=== PATIENT | male | born 2000 | race Caucasian/White ===

== ENCOUNTER 2024-11-22 08:05 | Outpatient (AMB) | payer OTHER, SELFPAY ==
--- OUTSIDE RECORDS SUMMARY | 2024-11-22 08:12 | XMS_ITS | Continuity of Care Document ---
Author Organization [facility] Address [address], [address] [place] [address]- Care Team Providers Care Can Reconditioner Name Role Phone Oj Valles MD Primary Care Physician [phone] Encounter 11/12/24 - 11/19/24 [facility] [place] [address], [address] [place] [address]- Attending Physician: Deondre Ramachandran Admitting Physician: Deondre Ramachandran Referring Physician: Deondre Ramachandran Encounter Type: OutPatient One Time Allergies, Adverse Reactions, Alerts No Known Allergies Immunizations Given and Recorded Vaccine Date Status Refusal Reason influenza virus vaccine, inactivated 07/26/21 Keon rded influenza virus vaccine, inactivated 06/30/20 Keon rded influenza virus vaccine, inactivated 06/24/19 Keon rded influenza virus vaccine, inactivated 08/21/18 Keon rded influenza virus vaccine, inactivated 08/31/17 Keon rded influenza virus vaccine, inactivated 06/23/16 Keon rded influenza virus vaccine, inactivated 08/26/15 Keon rded influenza virus vaccine, inactivated 08/15/13 Keon rded influenza virus vaccine, inactivated 08/06/12 Keon rded influenza virus vaccine, inactivated 08/19/11 Keon rded influenza virus vaccine, inactivated 08/12/10 Keon rded meningococcal group B vaccine 04/29/21 Recorded meningococcal group B vaccine 06/30/20 Recorded Hepatitis A Pediatric Vaccine 04/29/21 Recorded Hepatitis A Pediatric Vaccine 06/30/20 Recorded SARS-CoV-2 (COVID-19) mRNA-1273 vaccine 03/09/21 R ecorded SARS-CoV-2 (COVID-19) mRNA-1273 vaccine 02/09/21 R ecorded Meningococcal Conjugate Vaccine 06/24/19 Recorded Meningococcal Conjugate Vaccine 02/18/14 Recorded Human Papillomavirus Vaccine 10/02/14 Recorded Human Papillomavirus Vaccine 05/13/14 Recorded Human Papillomavirus Vaccine 02/18/14 Recorded influenza virus vaccine, live 08/05/14 Recorded tetanus/diphtheria/pertussis, acel(Tdap) 02/18/14 Recorded influ virus vac, H1N1, inactive(oldterm) 12/14/09 Recorded Varicella Virus Vaccine 11/27/07 Recorded Varicella Virus Vaccine 10/02/03 Recorded Poliovirus Vaccine, Inactivated 11/27/07 Recorded Poliovirus Vaccine, Inactivated 04/05/04 Recorded Poliovirus Vaccine, Inactivated 01/29/03 Recorded Poliovirus Vaccine, Inactivated 02 Recorded Measles/Mumps/Rubella Virus Vaccine 08/30/07 Recor ded Measles/Mumps/Rubella Virus Vaccine 12/29/03 Recor ded pneumococcal 7-valent vaccine 10/02/03 Recorded pneumococcal 7-valent vaccine 04/08/03 Recorded pneumococcal 7-valent vaccine 01/29/03 Recorded pneumococcal 7-valent vaccine 02 Recorded Medications EpiPen 2-Arben 0.3 mg injectable kit = 0.3 mg, Intramuscular, Once, may repeat if necessary, # 1 each, 0 Refills, Soft Stop, 10/17/21 9:25:00 AM EST, [facility], Partial fill upon patient request if the prescription is for aschedule II opioid drug., 175, cm, 10/17/21 2:04:00 EST, Height, 81.7, kg, 10/17/21 2:04:00 EST, Dry Weight Start Date: 10/17/21 Status: Ordered Quantity: 1.0 Unit: each Repeat number: 1 Results Radiology Reports * Exam Date Time Procedure Performing Provider Status 11/12/24 1:58 PM Knee 3 Views Left Askew , Erasmo; Auth (Verified) Notes: (Knee 3 Views Left) Reason For Exam: Pain;Pain RESULT: Knee 3 Views Left Knee 3 Views Left Reason: Pain; Order Comment: COMPARISON: None. FINDINGS: There is no evidence of acute or healing fracture, dislocation or bone lesion. No arthritic changes. No osteochondral defects or intra-articular loose bodies. Moderate knee joint effusion. IMPRESSION: No acute osseous abnormality. WSN: [id number] Ordering Physician: Deondre Khan Dictated By: Cindy Awan MD Dictated Date/Time: 11/12/24 2:07 pm Reviewed By: Cindy Awan MD Signed By: Cindy Awan MD Signed Date/Time: 11/12/24 2:07 pm Transcribed By: MEGHAN Transcribed Date/Time: 11/12/24 2:06 pm Patient Care team information Care Team Personnel Name: Oj Valles MD Position: S Physician - Pediatrics Member Role: PCP Address: [address] [place] [address] Telecom: Care Team Related Persons Name: LAURA ALTAMIRANO Insurance Providers Guarantor name: MYLA COOK Health Plan Information #: 1 Payer: [facility] Member Number: [id number] Policy Number: NA Group Number: NA Health Plan Information #: 2 Payer: [facility] Member Number: [id number] Policy Number: NA Group Number: NA
--- OUTSIDE RECORDS SUMMARY | 2024-11-22 08:12 | XMS_ITS | Data Portability ---
Author Organization [place] - [facility], [facility] Address [address] [place] [id number] Assessment Encounter Date Assessment Date Assessment LastModified by Organization Details LastModified Time 06/30/2020 06/30/2020 Healthy 19 year old. Nl growth and dev jyunis Not available 06/30/2020 15:43:13 07/26/2021 07/26/2021 Healthy 20 year old. Nl growth and dev jyunis Not available 07/26/2021 15:36:45 05/19/2022 05/19/2022 Healthy 21 year old. Nl growth and dev jyunis Not available 05/19/2022 16:56:57 06/08/2023 06/08/2023 Healthy 22 year ild. Nl growth and dev jyunis Not available 06/08/2023 15:56:06 Plan of Treatment Reminders Order Date Submit Date Provider Last Modified By Organization Details Last Modified Time Details Appointments None recorde d. Lab lipid panel, blood 021 07/26/20 [facility], [address] [place] [address], [phone], 15:29:42 CT + NG DNA, PCR, urine 021 07/26/20 21 [facility], [address] [place] [address], [phone], 15:59:50 CT + NG DNA, PCR, urine 022 05/19/20 22 [facility], [address] [place] [address], [phone], 15:54:15 CT + NG DNA, PCR, urine 023 06/08/20 23 [facility], [address] [place] [address], [place], [phone], 16:01:53 Referral None recorde d. Procedures None recorde d. Surgeries None recorde d. Imaging None recorde d. Medication Orders None recorde d. Patient TargetsNo targets recorded. Patient Instructions Encounter Date Encounter Id Patient Instructions Last Modified By Organization Details Last Modified Time 06/30/2020 [id number] patient health questionnaire modified for adolescents* ZAHRA Not available 06/30/2020 15:10:41 immunization: what you need to know jyunis Not available 06/30/2020 14:21:35 07/26/2021 [id number] patient health questionnaire depression assessment* jyunis Not available 07/26/2021 15:20:31 immunization: what you need to know jyunis Not available 07/26/2021 15:20:30 05/19/2022 [id number] program - 5 fruits & veggies jyunis Not available 05/19/2022 15:46:18 5210 program - 1 hour of exercise jyunis Not available 05/19/2022 15:46:19 patient health questionnaire depression assessment* ZAHRA Not available 05/19/2022 16:03:04 We have discusse d that it is now time for the patient to work on selecting a new adult medicine provider. mpotterton Not available 05/18/2022 11:21:46 06/08/2023 [id number] immunization: what you need to know jyunis Not available 06/08/2023 15:59:31 5210 program - 5 fruits & veggies jyunis Not available 06/08/2023 15:59:31 5210 program - 1 hour of exercise jyunis Not available 06/08/2023 15:59:31 We have discusse d that it is now time for the patient to work on selecting a new adult medicine provider. ataliceo Not available 06/07/2023 10:04:01 Reason for Referral None Reported. Results Created Date Observation Date Name Description Value Unit Range Abnormal Flag Note LastModifiedBy Organization Detail LastModifiedTime 06/30/20 20 06/30/2020 [facility] ionna sandra modif ied for adole scent s* PHQ-9 negati ve Not Available [facility] [address] [facility], [place], [phone], 06/30/2020 08:45:23 07/26/20 21 07/27/2021 URINE CHLAM YDIA GC AMP PROBE urine chlamydia amp probe (neg) NEGAT ROME No Chlam ydia Trach omati s RNA detec rose mary in this patie nt's sampl e (REFE RENCE RANGE /NORM AL VALUE : NOT DETEC ROSE MARY) Note: This test uses trans cript ion- media rose mary ampli ficat ion metho d to detec t rRNA from C. Trach omati s Not Available [facility] [address] [place], [address], 07/27/2021 10:18:02 07/26/20 21 07/27/2021 URINE CHLAM YDIA GC AMP PROBE urine GC amp probe (neg) NEGAT ROME No Neiss eria Gonor rhoea e RNA detec rose mary in this patie nt's sampl e (REFE RENCE RANGE /NORM AL VALUE : NOT DETEC ROSE MARY) NOTE: This test uses trans cript ion-m ediat ed ampli ficat ion metho d to detec t rRNA from N.Jeremie orrho eae. A negat rome resul t does not precl ude infec tion. In the case of a negat rome urine resul t, testi ng of an endoc ervic al(fe male) or ureth ral (male ) speci men is recom ty d if there is high clini heather suspi cion of infec tion. Due to very high sensi tivit y of Nucle ic Acid Ampli ficat ion Test, false posit rome resul ts may occur . There fore, speci men handl ing is extre sally impor tant. In patie nts in whom the disea se is unlik toño, addit ional sampl e for testi ng shoul d be consi dered after an initi al posit rome resul t. The perfo rmanc e richy cteri stics of this test have not been evalu ated in child shakira. The Aptim a Combo 2 assay is not inten ded for the evalu ation of suspe cted sexua l abuse or for other medic o-leg al indic ation s. The order ing provi cris shoul d asses s if the patie nt had conse nsual sex witho ut risk of sexua l abuse . [facility] if neede d. Conta ct phone numbe r [phone]. Thera peuti c failu re or succe ss canno t be deter mined with the Aptim a Combo 2 assay since nucle ic acid may persi st follo wing appro priat e antim icrob ial thera py. The Cente rs for Disea se Contr ol and Preve ntion ([facility]) recom mends confi rmato ry retes ting using cultu re or a diffe rent nucle ic acid ampli ficat ion test when posit rome resul ts occur , if indic ated. Not Available [facility] [address] [place], [address], 07/27/2021 10:18:02 07/26/20 21 07/26/2021 patie nt healt h quest ionna sandra depre ssion asses sment * PHQ-9 negati ve Not Available [facility] [address] [place] [address], [phone], 07/26/2021 08:12:28 05/19/20 22 05/20/2022 URINE CHLAM YDIA GC AMP PROBE urine chlamydia amp probe (neg) NEGAT ROME No Chlam ydia Trach omati s RNA detec rose mary in this patie nt's sampl e (REFE RENCE RANGE /NORM AL VALUE : NOT DETEC ROSE MARY) Note: This test uses trans cript ion- media rose mary ampli ficat ion metho d to detec t rRNA from C. Trach omati s Not Available [facility] [address] [place], [address], 05/20/2022 12:04:13 05/19/20 22 05/20/2022 URINE CHLAM YDIA GC AMP PROBE urine GC amp probe (neg) NEGAT ROME No Neiss eria Gonor rhoea e RNA detec rose mary in this patie nt's sampl e (REFE RENCE RANGE /NORM AL VALUE : NOT DETEC ROSE MARY) NOTE: This test uses trans cript ion-m ediat ed ampli ficat ion metho d to detec t rRNA from N.Jeremie orrho eae. A negat rome resul t does not precl ude infec tion. In the case of a negat rome urine resul t, testi ng of an endoc ervic al(fe male) or ureth ral (male ) speci men is recom ty d if there is high clini heather suspi cion of infec tion. Due to very high sensi tivit y of Nucle ic Acid Ampli ficat ion Test, false posit rome resul ts may occur . There fore, speci men handl ing is extre sally impor tant. In patie nts in whom the disea se is unlik toño, addit ional sampl e for testi ng shoul d be consi dered after an initi al posit rome resul t. The perfo rmanc e richy cteri stics of this test have not been evalu ated in child [place]. The Aptim a Combo 2 assay is not inten ded for the evalu ation of suspe cted sexua l abuse or for other medic o-leg al indic ation s. The order ing provi cris shoul d asses s if the patie nt had conse nsual sex witho ut risk of sexua l abuse . [facility] if neede d. Conta ct phone numbe r . Thera peuti c failu re or succe ss canno t be deter mined with the Aptim a Combo 2 assay since nucle ic acid may persi st follo wing appro priat e antim icrob ial thera py. The Cente rs for Disea se Contr ol and Preve ntion ([facility]) recom mends confi rmato ry retes ting using cultu re or a diffe rent nucle ic acid ampli ficat ion test when posit rome resul ts occur , if indic ated. Not Available [facility] [address], [place], [address], 05/20/2022 12:04:13 05/19/20 22 05/19/2022 patie nt healt h quest ionna sandra depre ssion asses sment * PHQ-9 negati ve Not Available [facility] [address] [facility], [place], [address], 05/18/2022 11:21:53 06/08/20 23 06/09/2023 CHLAM YDIA/ NEISS ERIA RNA, TMA, URINE urine chlamydia amp probe (neg) NEGAT ROME No Chlam ydia Trach omati s RNA detec rose mary in this patie nt's sampl e (REFE RENCE RANGE /NORM AL VALUE : NOT DETEC ROSE MARY) Note: This test uses trans cript ion- media rose mary ampli ficat ion metho d to detec t rRNA from C. Trach omati s Not Available [facility] [address], [place], [address], 06/09/2023 11:22:36 06/08/20 23 06/09/2023 CHLAM YDIA/ NEISS ERIA RNA, TMA, URINE urine GC amp probe (neg) NEGAT ROME No Neiss eria Gonor rhoea e RNA detec rose mary in this patie nt's sampl e (REFE RENCE RANGE /NORM AL VALUE : NOT DETEC ROSE MARY) NOTE: This test uses trans cript ion-m ediat ed ampli ficat ion metho d to detec t rRNA from N.Jeremie orrho eae. A negat rome resul t does not precl ude infec tion. In the case of a negat rome urine resul t, testi ng of an endoc ervic al(fe male) or ureth ral (male ) speci men is recom ty d if there is high clini heather suspi cion of infec tion. Due to very high sensi tivit y of Nucle ic Acid Ampli ficat ion Test, false posit rome resul ts may occur . There fore, speci men handl ing is extre sally impor tant. In patie nts in whom the disea se is unlik toño, addit ional sampl e for testi ng shoul d be consi dered after an initi al posit rome resul t. The perfo rmanc e richy cteri stics of this test have not been evalu ated in child [place]. The Aptim a Combo 2 assay is not inten ded for the evalu ation of suspe cted sexua l abuse or for other medic o-leg al indic ation s. The order ing provi cris shoul d asses s if the patie nt had conse nsual sex witho ut risk of sexua l abuse . [facility] if neede d. Conta ct phone numbe r . Thera peuti c failu re or succe ss canno t be deter mined with the Aptim a Combo 2 assay since nucle ic acid may persi st follo wing appro priat e antim icrob ial thera py. The Cente rs for Disea se Contr ol and Preve ntion ([facility]) recom mends confi rmato ry retes ting using cultu re or a diffe rent nucle ic acid ampli ficat ion test when posit rome resul ts occur , if indic ated. Not Available [facility] [address] [place], [address], 06/09/2023 11:22:36 Result Notes None recorded. Problems Name Problem SNOMED Code Status Onset Date Resolution Date Notes Provider Name and Address Organization Details Recorded Time Unexplaine d weight loss 495608551 Active Taco Lu MD [address] [place] [address], , [facility] 4 18:01:21 Otitis 50426831 Active Taco Lu MD [address] [place] [address], , [facility] 5 12:41:45 Impacted cerumen 73158803 Completed 03/17/2016 Taco Lu MD [address] [place] [address], [place], [phone] , [facility] 6 10:56:28 Acute sinusitis 88963309 Completed 03/15/2013 Not Available [facility] 3 03:01:56 Acute upper respirator y infection 16158711 Completed 200602/06/2012 Not Available [facility] 3 03:01:56 Wrist joint pain 229544061 Completed 03/15/2013 Not Available [facility] 3 03:01:56 Pneumonia 458129392 Completed 200602/06/2012 Not Available [facility] 3 03:01:56 Verruca vulgaris 50091729 Completed 200702/06/2012 Not Available [facility] 3 03:01:56 Croup 78540854 Completed 03/15/2013 Not Available [facility] 3 03:01:56 Non-suppur ative otitis media with eustachian tube disorder 754150699 Completed 02/06/2012 Not Available [facility] 3 03:01:56 Diarrhea 85757432 Completed 03/15/2013 Not Available [facility] 3 03:01:56 Molluscum contagiosu m infection 56524545 Completed 200702/06/2012 Not Available [facility] 3 03:01:56 Otitis externa 7258513 Completed 200802/06/2012 Not Available [facility] 3 03:01:56 Allergic rhinitis 02418456 Completed 02/06/2012 Not Available [facility] 3 03:01:56 Acute pharyngiti s 948300793 Completed 03/15/2013 Not Available [facility] 3 03:01:56 Acute pharyngiti s 376416795 Completed 200602/06/2012 Not Available [facility] 3 03:01:56 Problem Notes None recorded. Procedures Surgical History Date Name Laterality Status Provider Name and Address Organization Details Recorded Time 5 Wax Removal with Curette Unilateral With or Without Irrigation completed Taco Lu MD [address], [place], , [facility] 09/18/2015 12:03:06 1 Wart removal completed Taco Lu MD [address], [place], , [facility] 12/14/2010 18:28:08 0 Wart removal completed Raymond [place]kathy [facility] 03/08/2010 15:15:55 Imaging Results None recorded. Procedure Notes None recorded. Medical Equipment None Reported. Allergies No known drug allergies Medications Name Sig Start Date Stop Date Status Note LastModified by Organization Details LastModified Time amoxicill in 500 mg capsule Take 2 capsules twice a day by oral route for 10 days. 03/17 completed Not Available Not Available Not Available doxycycli ne hyclate 100 mg capsule 06/30 completed Not Available Not Available Not Available fluoride 1 mg (2.2 mg sodium fluoride) chewable tablet 1 po qd 2009 active Not Available Not Available Not Avai lable tretinoin 0.01 % topical gel MATTHEW SPARINGL Y EXT AA QD 10/20 completed Not Available Not Available Not Available clindamyc in HCl 300 mg capsule 07/26 completed Not Available Not Available Not Available Cortispor in 3.5 mg/mL-10, 000 unit/mL-1 % ear drops,kayla pension Instill 4 drops into affected ear(s) by otic route 3-4 times per day for 5 -7 days 2009 active Not Available Not Available Not Avai lable Amoxil 400 mg/5 mL oral suspensio n Take 5 mL 3 times a day by oral route for 10 days. 03/09 completed Not Available Not Available Not Available ibuprofen 800 mg tablet 06/30 completed Not Available Not Available Not Available minocycli ne 100 mg capsule 06/30 completed Not Available Not Available Not Available Zithromax Z-Arben 250 mg tablet Take 2 tablets (500 mg) by oral route once daily for 1 day then 1 tablet (250 mg) by oral route once daily for 4 days 2009 active Not Available Not Available Not Avai lable adapalene 0.1 % topical cream 04/06 completed [facility] for [facility] Adapalen e Not Available Not Available Not Available amoxicill in 875 mg tablet Take 1 tablet twice a day by oral route for 10 days. 10/18 completed Not Available Not Available Not Available clindamyc in 1 % topical gel MATTHEW THIN LAYER EXT AA BID 06/24 completed Not Available Not Available Not Available oseltamiv ir 75 mg capsule Take 1 capsule every day by oral route for 7 days. 06/30 completed Not Available Not Available Not Available epinephri ne 0.3 mg/0.3 mL injection , auto-inje ctor use as dir active Not Available Not Available No t Available ibuprofen 600 mg tablet TK 1 T PO QID 03/17 completed Not Available Not Available Not Available methylpre dnisolone 4 mg tablets in a dose pack 06/30 completed Not Available Not Available Not Available Orapred 15 mg/5 mL (3 mg/mL) oral solution Take 10 mL 4 times a day by oral route for 5 days. 09/04 completed Not Available Not Available Not Available Ciprodex 0.3 %-0.1 % ear drops,kayla pension Instill 4 drops into affected ear(s) by otic route 2 times per day for 7 days 2010 active Not Available Not Available Not Avai lable chlorhexi dine gluconate 0.12 % mouthwash 06/30 completed Not Available Not Available Not Available multivita min QD active Not Available Not Available Not Available clindamyc in 1.2 % (1 % base)-agustín zoyl peroxide 5 % topical gel 07/26 completed Not Available Not Available Not Available adapalene 0.3 % topical gel 07/26 completed Not Available Not Available Not Available Duac CS 1 %-5 % topical kit apply sparingl y q d 06/30 completed Not Available Not Available Not Available Myorisan 40 mg capsule 07/26 completed Not Available Not Available Not Available BP 5 % topical gel APPLY TOPICALL Y BID 06/30 completed Not Available Not Available Not Available Myorisan 30 mg capsule 07/26 completed Not Available Not Available Not Available Afluria Quad 5432-3832 (PF) 60 mcg (15 mcg x 4)/0.5 mL IM syringe ADM 0.5ML IM UTD 06/24 completed Not Available Not Available Not Available Vitals Date Recorded Body height Body mass index (BMI) Percentile per age and sex Body mass index (BMI) Body weight Systolic blood pressure Diastolic blood pressure Provider Name and Address Organization Details Last Updated DateTime 0 179.71 cm 86 % 25.7 kg/m2 98316.4 g 112 mm[Hg] 62 mm[Hg] Nel Garland R.N. [facility] 0 14:09:05 Date Recorded Body height Body mass index (BMI) Body mass index (BMI) Percentile per age and sex Body weight Systolic blood pressure Diastolic blood pressure Provider Name and Address Organization Details Last Updated DateTime 1 179.71 cm 26.7 kg/m2 87 % 25073.8 3 g 110 mm[Hg] 70 mm[Hg] Jihan burt M.A. [facility] 1 15:14:11 Date Recorded Body height Body mass index (BMI) Body mass index (BMI) Percentile per age and sex Body weight Systolic blood pressure Diastolic blood pressure Provider Name and Address Organization Details Last Updated DateTime 2 179.71 cm 25.1 kg/m2 74 % 89780.3 2 g 112 mm[Hg] 68 mm[Hg] Carolann Whiting MA [facility] 2 15:37:01 Date Recorded Body height Body mass index (BMI) Body mass index (BMI) Percentile per age and sex Body weight Systolic blood pressure Diastolic blood pressure Provider Name and Address Organization Details Last Updated DateTime 3 182.24 cm 27.3 kg/m2 84 % 37951.7 6 g 114 mm[Hg] 78 mm[Hg] Kathy Mcgovern RN [facility] 3 15:51:59 Social History Question Answer Notes LastModified by Organizat ion Details LastModified Time Tobacco Smoking Status Never Smoker Nellie still [facility] 08/30/2012 16:59:55 Have There Been Any Changes To Your Family Or Social Situation? No Information not available 05/24/2017 Hard Of Hearing Or Deaf In One Or Both Ears? No Information not available 04/21/2016 Legally Blind In One Or Both Eyes? No Information not available 04/21/2016 Parent's Marital Status Information not available 03/23/2015 Home Situation Mother Informatio n not available 03/23/2015 Siblings Broderick (Arlene) 01/12/1993 [email or web address] Information not available 08/20/2011 Passive Smoke Exposure No [email or web address] Information not available 08/20/2011 Year In School [employer] cszczepmelina Information not available 07/26/2021 Parent's Name Rachael Malagon [email or web address] Information not available 08/20/2011 Parent's Name Blas Lopez ---- unexpectedly In 02/27 [email or web address] Information not available 08/20/2011 DSS/DCF Custody No Informati on not available 04/21/2016 What Was The Date Of Your Most Recent Tobacco Screening? 06/06/2018 Information not available 05/09/2019 Are You Passively Exposed To Smoke? No Information not available 03/23/2015 How Much Tobacco Do You Smoke? No Information not available 04/19/2016 Do You Use Any Illicit Or Recreational Drugs? No Information not available 05/24/2017 Have You Recently Traveled Abroad? No Information not available 06/30/2020 Sex: Male Functional Status None recorded. Mental Status None recorded. Family History Relationship Description Onset Age of this Age Resolved Age Notes LastModified by Organization Details LastModified Time Mother Allergy aspiri n klisien Not available 09/18/2015 11:48:20 Maternal Grandfather Malignant neoplastic disease lung (previ ously record ed as Cancer ) klisien Not available 09/18/2015 11:48:20 Maternal Grandfather Obese klisien Not available 2014 11:48:20 Maternal Grandfather History of hypertension klisien Not available 02/2016 13:32:59 Father Alcoholism klisien Not availabl e 09/18/2015 11:48:20 Father Disorder of thyroid gland hypert hyroid ism klisien Not available 09/18/2015 11:48:20 Father Heart disease 48 deceas ed klisien Not available 09/18/2015 11:48:20 Father History of hypertension klisien Not available 02/2016 13:32:59 Paternal Grandfather Alcoholism klisien Not available 01/2015 11:48:20 Paternal Grandfather Alzheimer's disease klisien Not available 2014 11:48:20 Maternal Grandmother History of hypertension klisien Not available 02/2016 13:32:59 Notes:Updated 06/07 Medical History Condition Response CARDIAC PROBLEMS N ALLERGIC AND IMMUNOLOGIC PROBLEMS N DEVELOPMENTAL/ BEHAVIORAL PROBLEMS N MUSCLE/ JOINT/ BONE PROBLEMS N DERMATOLOGIC PROBLEMS/ECZEMA N HOSPITALIZATIONS N ENT PROBLEMS/OTITIS MEDIA/ CHRONIC N RENAL PROBLEMS N HEMATOLOGIC /ONCOLOGIC PROBLEMS N ACCIDENTS INJURIES N NEUROLOGIC/ SEIZURES OR CONVULSIONS N ADHD N ENDOCRINE PROBLEMS/DIABETES N HEADACHES/MIGRAINES/DIZZINESS N GI PROBLEMS/CONSTIPATION N CONGENITAL AND GENETIC PROBLEMS N ORTHOPEDIC PROBLEMS N CHICKEN POX / VARICELLA HISTORY or POSIT ROME TITER N PUMONARY PROBLEMS/ ASTHMA N PSYCH PROBLEMS N Immunizations Vaccine Type Date Status Note Provider Nam e and Address Organization Details Recorded Time DTaP, unspecified formulation 8 completed Not Available [facility] 08/20/2011 03:16:44 IPV 8 completed Not Available [facility] 08/20/2011 03:16:44 varicella 8 completed Not Available [facility] 08/20/2011 03:16:44 Influenza, split virus, trivalent, PF 1 completed Not Available [facility] 11/02/2019 02:38:39 Influenza, split virus, trivalent, preservative 2 completed Not Available [facility] 11/02/2019 02:35:24 influenza, unspecified formulation 8 completed Not Available [facility] 08/20/2011 03:16:44 Influenza, split virus, quadrivalent, PF 3 completed Not Available [facility] 11/02/2019 02:35:37 HPV, quadrivalent 4 completed Not Available [facility] 11/02/2019 02:34:12 Tdap 4 completed Not Available [facility] 11/02/2019 02:33:46 meningococcal MCV4P 4 completed Not Available [facility] 11/02/2019 02:33:34 HPV, quadrivalent 4 completed Not Available [facility] 11/02/2019 02:34:13 Influenza, live, quadrivalent, intranasal 4 completed Not Available [facility] 11/02/2019 02:35:50 HPV, quadrivalent 4 completed Not Available [facility] 11/02/2019 02:34:15 Influenza, split virus, quadrivalent, PF 5 completed Not Available [facility] 11/02/2019 02:36:24 Influenza, split virus, quadrivalent, PF 6 completed Not Available [facility] 11/02/2019 02:36:55 Novel [id number] 0 completed Not Available [facility] 11/02/2019 02:34:47 COVID-19, mRNA, LNP-S, PF, 100 mcg/0.5mL dose or 50 mcg/0.25mL dose 1 completed Heriberto Casanova, [facility] 04/29/2021 15:18:14 COVID-19, mRNA, LNP-S, PF, 100 mcg/0.5mL dose or 50 mcg/0.25mL dose 1 completed Heriberto Casanova, [facility] 04/29/2021 15:18:27 influenza, unspecified formulation 9 completed Not Available [facility] 08/20/2011 03:17:07 meningococcal MCV4P 9 completed Not Available [facility] 11/02/2019 02:39:32 Influenza, split virus, quadrivalent, PF 9 completed Not Available [facility] 11/02/2019 02:39:31 Hep A, ped/adol, 2 dose 0 completed Taco Lu MD [address] [place] [address], [phone], [facility] 06/30/2020 15:42:52 Influenza, split virus, quadrivalent, PF 0 completed Taco Lu MD [address], [place], , [facility] 06/30/2020 15:42:52 meningococcal B, OMV 0 completed Taco Lu MD [address], [place], , [facility] 06/30/2020 15:42:52 Hep A, ped/adol, 2 dose 1 [facility] [facility] 15:29:58 meningococcal B, OMV 1 completed [facility] 04/29/2021 15:29:58 Influenza, split virus, quadrivalent, PF 1 completed Jihan Yi M.A. [facility] 07/26/2021 15:29:18 influenza, unspecified formulation 7 completed Not Available [facility] 08/20/2011 03:16:44 Novel [id number], all formulations 9 completed Not Available [facility] 11/16/2019 02:10:49 DTaP, unspecified formulation 4 completed Not Available [facility] 08/20/2011 03:19:09 DTaP, unspecified formulation 3 completed Not Available [facility] 08/20/2011 03:17:38 DTaP, unspecified formulation 3 completed Not Available [facility] 08/20/2011 03:17:38 DTaP, unspecified formulation 3 completed Not Available [facility] 08/20/2011 03:17:38 IPV 4 completed Not Available [facility] 08/20/2011 03:17:38 IPV 3 completed Not Available [facility] 08/20/2011 03:17:38 IPV 3 completed Not Available [facility] 08/20/2011 03:17:38 Hib, unspecified formulation 4 completed Not Available [facility] 08/20/2011 03:17:38 MMR 4 completed Not Available [facility] 08/20/2011 03:17:38 MMR 7 completed Not Available [facility] 08/20/2011 03:17:38 Hib, unspecified formulation 3 completed Not Available [facility] 08/20/2011 03:19:09 Hib, unspecified formulation 3 completed Not Available [facility] 08/20/2011 03:17:38 Hib, unspecified formulation 3 completed Not Available [facility] 08/20/2011 03:17:38 Hep B, unspecified formulation 2 completed Not Available [facility] 08/20/2011 03:17:38 Hep B, unspecified formulation 3 completed Not Available [facility] 08/20/2011 03:17:38 Hep B, unspecified formulation 3 completed Not Available [facility] 08/20/2011 03:17:38 pneumococcal conjugate PCV 7 3 completed Not Available [facility] 08/20/2011 03:17:38 pneumococcal conjugate PCV 7 3 completed Not Available [facility] 08/20/2011 03:17:38 pneumococcal conjugate PCV 7 3 completed Not Available [facility] 08/20/2011 03:17:38 pneumococcal conjugate PCV 7 3 completed Not Available [facility] 08/20/2011 03:17:38 varicella 3 completed Not Available [facility] 08/20/2011 03:19:09 Influenza, split virus, trivalent, preservative 0 completed Not Available [facility] 11/02/2019 02:35:06 Past Encounters Encounter ID Performer Location Encounter Start Date Encounter Closed Date Diagnosis/Indication Diagnosis SNOMED-CT Code Diagnosis ICD10 Code Diagnosis Note [id number] [facility] [place] [address] [facility] [place] [address] 4 06/20/2007 11:30:11 06/20/2007 12:02:00 [id number] [facility] [place] [address] [facility] [place] [address] 4 07/03/2007 16:03:17 07/03/2007 16:35:01 [id number] [facility] [place] [address] [facility] [place] [address] 4 08/14/2007 14:27:16 08/14/2007 14:38:01 [id number] [facility] [place] [facility] [address] [place] [address] 4 09/10/2007 16:05:07 09/10/2007 16:29:56 [id number] [facility] [place] [facility] [address] [place] [address] 4 09/20/2007 16:18:26 09/20/2007 16:51:12 [id number] [facility] [place] [facility] [address] [place] [address] 4 11/27/2007 16:01:15 11/27/2007 16:58:31 [id number] [facility] [place] [facility] [address] [place] [address] 4 04/15/2008 09:35:25 06/25/2009 01:23:50 [id number] [facility] [place] [facility] [address] [place] [address] 4 05/01/2008 11:32:10 06/25/2009 01:23:50 [id number] [facility] [place] [facility] [address] [place] [address] 4 08/18/2008 16:17:19 08/18/2008 16:28:27 [id number] [facility] [place] [facility] [address] [place] [address] 4 08/28/2008 16:18:39 08/28/2008 16:43:41 [id number] [facility] [place] [facility] [address] [place] [address] 4 10/17/2008 16:58:20 10/17/2008 17:31:08 [id number] [facility] [place] [facility] [address] [place] [address] 4 12/11/2008 13:18:06 12/11/2008 13:54:06 [id number] [facility] [place] [facility] [address] [place] [address] 4 02/26/2009 15:40:42 02/26/2009 16:10:45 [id number] [facility] [place] [facility] [address] [place] [address] 4 12/14/2009 15:56:17 12/14/2009 16:57:36 [id number] [facility] [place] [facility] [address] [place] [address] 4 02/27/2010 09:44:18 02/27/2010 10:11:23 [id number] [facility] [place] [facility] [address] [place] [address] 4 03/08/2010 14:43:24 03/08/2010 15:26:04 [id number] [facility] [place] [facility] [address] [place] [address] 4 05/06/2010 11:05:31 05/06/2010 11:51:38 [id number] [facility] [place] [facility] [address] [place] [address] 4 12/14/2010 16:11:26 12/14/2010 18:29:18 [id number] [facility] [place] [facility] [address] [place] [address] 4 02/17/2011 15:43:27 02/17/2011 16:14:16 [id number] [facility] [place] [facility] [address] [place] [address] 4 02/06/2012 13:21:45 02/06/2012 14:02:42 [id number] [facility] [place] [facility] [address] [place] [address] 4 05/07/2012 11:00:30 05/07/2012 12:08:39 [id number] Danni Diaz MD [facility] [place] [facility] [address] [place] [address] 08/30/2012 16:43:56 08/30/2012 17:19:47 [id number] Isabel Bustamante M.A. [facility] [address] [place] [address] 10/08/2012 11:06:40 10/08/2012 11:47:45 [id number] Taco Lu MD [facility] [place] [facility] [address] [place] [address] 4 03/15/2013 14:06:29 03/15/2013 14:38:23 [id number] [facility] [place] [facility] [address] [place] [address] 4 02/18/2014 11:08:20 02/18/2014 11:58:50 Well child [id number] Nancie Almodovar [address] [address] 05/13/2014 14:29:53 05/13/2014 14:36:29 Administration of viral vaccine [id number] Shot only HPV [id number] Princess Bardales [address] [address] 4 07/08/2014 15:08:59 07/08/2014 17:17:38 Unexplained weight loss 248122854 [id number] Jihan Yi M.A. [address] [address] 4 10/02/2014 16:23:28 10/02/2014 18:01:47 Administration of viral vaccine 39860058 Shot only HPV Unexplaine d weight loss 926073673 [id number] [address] [address] 4 03/23/2015 15:06:41 03/23/2015 15:39:53 Well child 614776014 [id number] Asif Mooney MD [address] [address] 4 08/19/2015 10:39:55 08/19/2015 11:10:23 Viral syndrome 467774490 B34.9 Discussed supp care and expected course - will push fluids, trial nasal saline, motrin PRN; RTO if persistent fevers, diff breathing or other concerns [id number] Taco Lu MD [address] [address] 4 09/18/2015 11:25:28 09/18/2015 12:42:20 Otitis 93998585 H66.91 Impacted cerumen 1589784 6 H61.21 [id number] Taco Lu MD [address] [address] 4 03/17/2016 10:46:45 03/17/2016 11:21:03 Allergic conjunctivitis 396878093 H10.13 [id number] Taco Lu MD [address] [address] 4 04/21/2016 16:02:42 04/21/2016 16:27:44 Well child 056464473 Z00.129 [id number] Taco Lu MD [address] [address] 4 06/23/2016 13:35:34 06/23/2016 17:32:23 Influenza vaccine needed 4206802780 106 Z23 [facility] 48791416 L70.9 [id number] Taco Lu MD [address] [address] 4 05/24/2017 15:07:05 05/24/2017 15:26:43 Well child 808366528 Z00.129 [id number] Taco Lu MD [address] [address] 4 04/06/2018 14:33:46 04/06/2018 14:59:11 Acne 45286870 L70.9 [id number] Taco Lu MD [address] [address] 4 06/06/2018 10:11:55 06/06/2018 10:53:25 Well child 802598695 Z00.129 Normal weight 39322969 Z 68.52 [id number] Taco Lu MD [address] [address] 4 06/24/2019 13:53:28 06/24/2019 14:44:59 Well child 431543036 Z00.129 Normal weight 92330129 Z 68.52 Active or passive immunization 235990528 Z23 [id number] Taco Lu MD [address] [address] 4 06/30/2020 14:00:22 06/30/2020 15:43:58 Active or passive immunization 479882892 Z23 Well child 747261230 Z00 .129 Normal weight 24401798 Z 68.52 Exercises education, guidance, and counseling 414519610 Z71.82 Diet education 88135049 Z71.3 [id number] Apurva Arteaga [address] [address] 4 04/29/2021 14:58:30 04/29/2021 15:32:59 Active or passive immunization 174436579 Z23 [id number] Taco Lu MD [facility] [address] [address] 07/26/2021 15:08:30 07/26/2021 15:37:42 Active immunization 51194719 Z23 Adult heal th examination 171360167 Z00.00 Increased body mass index 68020965 E66.3 Hyperlipid emia screening 378243568 Z13.220 [id number] Taco Lu MD [facility] [address] [place] [address] 4 05/19/2022 15:06:17 05/19/2022 16:58:11 Adult health examination 667296073 Z00.00 Diet education 23266816 Z71.3 Exercises education, guidance, and counseling 161736673 Z71.82 Normal bod y mass index 19769209 Z68.24 [id number] Taco Lu MD [facility] [address] [address] 4 06/08/2023 15:48:24 06/08/2023 16:01:41 Adult health examination 624496202 Z00.00 Increased body mass index 32534164 E66.3 Diet education 28369625 Z71.3 Exercises education, guidance, and counseling 486763766 Z71.82 Health Concerns Section Related Observation LastModified by Organization Detai ls LastModified Time None Recorded Concern Status LastModified by Organization Details LastModified Time None Recorded Advance Directives Directive None Recorded Payers Encounter Date Sequence Insurance Name Policy Number Policy Brown Covered Member ID Brown Member ID Guarantor Name 06/30/2020 1 [place] [facility] [id number] Chernatalie Bonavita [id number] Lopez 04/29/2021 1 [place] [facility] [id number] Cherelyn Bonavita [id number] 07/26/2021 1 [place] [facility] [id number] Chertoñon Bonavita [id number] Lopez 05/19/2022 1 [facility] ([place]) [id number] Lan Nietoantis [id number] Blas Ramose 06/08/2023 1 [facility] ([facility] [id number] Lan Nietoantis [id number] Blas Lopez Notes Date Note Type Note Provider Name and Address Organization Details Recorded Time 06/30/2020 text/html Pt is afebrile. No ill symptoms in >10 days. No known Covid 19 exposure. No travel out of [place] in > 2 weeks. Taco Lu MD [address] [place] [address], , [facility] 06/30/2020 15:43:27 07/26/2021 text/html Pt and parent are afebrile. No ill symptoms in >10 days. No known Covid 19 exposure. No travel out of [place] in last 2 weeks. Taco Lu MD [address] [place] [address], , [facility] 07/26/2021 15:36:56
--- OUTSIDE RECORDS SUMMARY | 2024-11-22 08:12 | XMS_ITS ---
Author Name [facility] Organization Unknown History of Medication Use Medication Directions Dispensed Refills Start Date End Date Stat epinephrine 0.3 mg/0.3 mL injection, auto-injector use as dir use as dir completed Problems Problem Status Onset Date Problem Type Date of Resoluti on Source Unexplained weight loss active ProblemAct CTHLPVP Otitis active ProblemAct CTHLPVP
--- OUTSIDE RECORDS SUMMARY | 2024-11-22 08:12 | XMS_ITS | Data Portability ---
Author Organization [facility], Main Office Address [address] [facility] [address] [place] [id number] Care Team Providers Care Hairspring Ii Inspector Name Role Phone ALESSANDRO MCDONNELL Primary Care Provider Assessment No assessment recorded. Plan of Treatment Reminders Order Date Submit Date Provider Last Modified By Organization Details Last Modified Time Details Appointments None recorded. Lab lipid panel, serum 2023 [facility], [address], [address], 4 16:45:54 CMP, serum or plasma 2023 024 [facility], [address], [address], 4 16:45:55 CBC w/ auto diff 2023 [facility], [address] [address], [place], [address], 4 16:45:55 CT + NG RNA, PCR, unspecified specimen 2023 024 [facility], [address] [facility], [facility] [address], [place], [address], 4 16:45:54 Hepatitis C IgG Ab, qual, serum 2023 [facility], [address] [facility], [address] [address], [place], [address], 4 16:42:27 Referral nutritionis t/dietitian referral 2023 [email or web address] Not available 09:42:52 Procedures None recorded. Surgeries None recorded. Imaging None recorded. Medication Orders None recorded. Patient Targets Encounter Date Encounter Id Patient Goals Patient Target Last Modified By Organization Details Last Modified Time 06/10/2024 [id number] nursing home goal of Excess Body Weight Loss % 5 Not available Not available Not available Pt advised and agrees to work on self-monitoring behaviors; begin an appropriate diet for weight loss (such as a low carbohydrate diet), to do moderate exercise (such as walking) for approximately 150 minutes per week; and to identify desirable and timely rewards that will reinforce achievement of specific weight loss goals. [email or web address] Not available 06/10/2024 17:26:49 Patient Instructions Encounter Date Encounter Id Patient Instructions Last Modified By Organization Details Last Modified Time 06/10/2024 [id number] When You Want to Lose Weight: Care Instructions [email or web address] Not available 06/10/2024 17:25:21 Nutrition Referral and Weight Management Follow-up Information [email or web address] Not available 06/10/2024 17:25:21 Well Visit, Ages 18 to 65: Care Instructions pmadden Not available 06/10/2024 16:45:46 testicular self-exam: care instructions pmadden Not available 06/10/2024 16:45:46 A healthy lifestyle: care instructions pmadden Not available 06/10/2024 16:45:46 Medications (OTC , herbal therapies, supplements) reviewed and reconciled with patient and or caregiver, including potential side effects, drug interactions, instructions, and the consequences of not taking medication. Reviewed potential barriers to medication adherence, such as side effects from medication or cost of medication. 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 Tariff [facility] 16:20:42 Problem Notes None recorded. Medical Equipment None Reported. Allergies No known drug allergies Medications Name Sig Start Date Stop Date Status Note LastModified by Organization Details LastModified Time prednisone 10 mg tablet TAKE 4 TABLETS BY MOUTH DAILY FOR 5 DAYS , 2 TABLETS FOR 5 DAYS , 1 TABLET FOR 5 DAYS WITH FOOD active Not Available Not Available No t Available Vitals Date Recorded Body height Body mass index (BMI) Body weight Heart rate Oxygen saturation Oxygen saturation in Arterial blood by Pulse oximetry Body temperature Systolic blood pressure Diastolic blood pressure Provider Name and Address Organization Details Last Updated DateTime 4 180.34 cm 28.8 kg/m2 89287.4 3 g 56 /min 98 % 98 % 98.5 [degF] 95 mm[Hg] 60 mm[Hg] Vero Souza LPN [facility] 15:56:00 Social History Question Answer Notes LastModified by Organizat ion Details LastModified Time Tobacco Smoking Status Current Some Day Smoker Vero Souza LPN [facility] 06/10/2024 15:59:30 What Is Your Level Of Alcohol Consumption? Occasional Information not available 06/10/2024 Are You Currently Employed? Yes Information not available 06/10/2024 What Type Of Diet Are You Following? REGULAR Information not available 06/10/2024 Do You Take Precautions To Prevent Distracted Driving? Yes Information not available 06/10/2024 How Often Do You Need To Have Someone Help You When You Read Instructions, Pamphlets, Or Other Written Material From Your Doctor Or Pharmacy? Never Information not available 06/10/2024 Have You Served In The ? No Information not available 06/10/2024 How Many Children Do You Have? 0 Information not available 06/10/2024 What Is Your Current Pack Years? 10packyears Information not available 06/10/2024 Are You Sexually Active? Yes Information not available 06/10/2024 At What Age Did You Start Smoking Tobacco? 23 Information not available 06/10/2024 Are You Passively Exposed To Smoke? No Information no t available 06/10/2024 Do You Use Any Illicit Or Recreational Drugs? No Information not available 06/10/2024 How Many Years Have You Smoked Tobacco? 0 Information not available 06/10/2024 Do You Or Have You Ever Used Any Other Forms Of Tobacco Or Nicotine? No Information not available 06/10/2024 Sex: Male Functional Status Question Answer Note LastModified by Organization D etails LastModified Time Are you able to walk? YESWOREST Information not available 06/10/2024 What is your exercise level? Heavy Information not available 06/10/2024 Mental Status None recorded. Family History Nothing Reported. Medical History Condition Response Coronary Artery Disease N Gout N Kidney Stones N Blood Diseases N Hyperthyroidism N Breast Cancer N mrsa exposure N Hypothyroidism N Depression N COPD N Lung Disease N Defects or Inherited Disease N Developmental or Behavioral Disorders N Breast Problem N Anesthesia Complications N Headaches/Migraines N Varicose Veins N Anxiety Disorder N Muscle, Joint, or Bone Problems N Obesity N Vision or Eye Problems Y Arthritis N Head Injury/Concussion Y Infertility N Polyps N Mental Disorder N Congenital Anomalies N Acid Reflux (GERD) N Cancer N Stroke N ADHD N Endometriosis N High Cholesterol N Liver Disease N Headaches N Fibromyalgia N Kidney Disease N Heart Problems N Ear or Hearing Problems N Hospitalizations N Thyroid Problems N GI Problems N Developmental Delay N Acne Y Eating Disorder N Skin Problems N Anemia N Constipation N Bladder Problems N Mental Illness N Diabetes N Ovarian Cancer N Bedwetting N Blood Transfusions N Heart Problems/Murmur N Seizures/Epilepsy N Tuberculosis N AIDS/HIV N Congestive Heart Failure (CHF) N Eczema N Abuse/Domestic Violence N Diverticulitis N Asthma N Allergies Y Reflux/GERD N Hepatitis N Heart Disease N Pulmonary Embolism N Hypertension N Chicken Pox N Autism Spectrum Disorder (ASD) N Osteoporosis N Immunizations Vaccine Type Date Status Note Provider Nam e and Address Organization Details Recorded Time Hib, unspecified formulation 3 completed Vero Caporale, TURKEY EGG GATHERER null, [facility] 06/10/2024 15:57:14 Hib, unspecified formulation 4 completed Vero Caporale, TURKEY EGG GATHERER null, [facility] 06/10/2024 15:57:15 Hib, unspecified formulation 3 completed Vero Caporale, TURKEY EGG GATHERER null, [facility] 06/10/2024 15:57:15 Hib, unspecified formulation 3 completed Vero Caporale, TURKEY EGG GATHERER null, [facility] 06/10/2024 15:57:15 meningococcal B, OMV 1 completed Vero Caporale, TURKEY EGG GATHERER null, [facility] 06/10/2024 15:57:15 meningococcal B, OMV 0 completed Vero Caporale, TURKEY EGG GATHERER null, [facility] 06/10/2024 15:57:15 IPV 8 completed Vero Caporale, TURKEY EGG GATHERER null, [facility] 06/10/2024 15:57:15 IPV 3 completed Vero Caporale, TURKEY EGG GATHERER null, [facility] 06/10/2024 15:57:15 IPV 3 completed Vero Caporale, TURKEY EGG GATHERER null, [facility] 06/10/2024 15:57:15 IPV 4 completed Vero Caporale, TURKEY EGG GATHERER null, [facility] 06/10/2024 15:57:15 Influenza, MDCK, quadrivalent, PF 7 completed Vero Caporale, TURKEY EGG GATHERER null, [facility] 06/10/2024 15:57:15 MMR 4 completed Vero Caporale, TURKEY EGG GATHERER null, [facility] 06/10/2024 15:57:15 MMR 7 completed Vero Caporale, TURKEY EGG GATHERER null, [facility] 06/10/2024 15:57:15 COVID-19, mRNA, LNP-S, PF, 100 mcg/0.5mL dose or 50 mcg/0.25mL dose 2 completed Vero Caporale, TURKEY EGG GATHERER null, [facility] 06/10/2024 15:57:15 COVID-19, mRNA, LNP-S, PF, 100 mcg/0.5mL dose or 50 mcg/0.25mL dose 1 completed Vero Caporale, TURKEY EGG GATHERER null, [facility] 06/10/2024 15:57:15 COVID-19, mRNA, LNP-S, PF, 100 mcg/0.5mL dose or 50 mcg/0.25mL dose 1 completed Vero Caporale, TURKEY EGG GATHERER null, [facility] 06/10/2024 15:57:15 pneumococcal conjugate PCV 7 3 completed Vero Caporale, TURKEY EGG GATHERER null, [facility] 06/10/2024 15:57:15 pneumococcal conjugate PCV 7 3 completed Vero Caporale, TURKEY EGG GATHERER null, [facility] 06/10/2024 15:57:15 pneumococcal conjugate PCV 7 3 completed Vero Caporale, TURKEY EGG GATHERER null, [facility] 06/10/2024 15:57:15 pneumococcal conjugate PCV 7 3 completed Vero Caporale, TURKEY EGG GATHERER null, [facility] 06/10/2024 15:57:15 influenza, unspecified formulation 9 completed Vero Caporale, TURKEY EGG GATHERER null, [facility] 06/10/2024 15:57:15 influenza, unspecified formulation 7 completed Vero Caporale, TURKEY EGG GATHERER null, [facility] 06/10/2024 15:57:15 influenza, unspecified formulation 8 completed Vero Caporale, TURKEY EGG GATHERER null, [facility] 06/10/2024 15:57:15 Tdap 4 completed Vero Caporale, TURKEY EGG GATHERER null, [facility] 06/10/2024 15:57:15 Novel [id number], all formulations 9 completed Vero Caporale, TURKEY EGG GATHERER null, [facility] 06/10/2024 15:57:15 varicella 8 completed Vero Caporale, TURKEY EGG GATHERER null, [facility] 06/10/2024 15:57:15 varicella 3 completed Vero Caporale, TURKEY EGG GATHERER null, [facility] 06/10/2024 15:57:15 Hep B, unspecified formulation 3 completed Vero Caporale, TURKEY EGG GATHERER null, [facility] 06/10/2024 15:57:15 Hep B, unspecified formulation 3 completed Vero Caporale, TURKEY EGG GATHERER null, [facility] 06/10/2024 15:57:15 Hep B, unspecified formulation 2 completed Vero Caporale, TURKEY EGG GATHERER null, [facility] 06/10/2024 15:57:15 Influenza, split virus, trivalent, preservative 2 completed Vero Caporale, TURKEY EGG GATHERER null, [facility] 06/10/2024 15:57:15 Influenza, split virus, trivalent, preservative 0 completed Vero Caporale, TURKEY EGG GATHERER null, [facility] 06/10/2024 15:57:15 Influenza, split virus, trivalent, PF 1 completed Vero Caporale, TURKEY EGG GATHERER null, [facility] 06/10/2024 15:57:15 Novel [id number] 0 completed Vero Caporale, TURKEY EGG GATHERER null, [facility] 06/10/2024 15:57:15 HPV, quadrivalent 4 completed Vero Caporale, TURKEY EGG GATHERER null, [facility] 06/10/2024 15:57:15 HPV, quadrivalent 4 completed Vero Caporale, TURKEY EGG GATHERER null, [facility] 06/10/2024 15:57:15 HPV, quadrivalent 4 completed Vero Caporale, TURKEY EGG GATHERER null, [facility] 06/10/2024 15:57:15 Hep A, ped/adol, 2 dose 1 completed Vero Caporale, TURKEY EGG GATHERER null, [facility] 06/10/2024 15:57:15 Hep A, ped/adol, 2 dose 0 completed Vero Caporale, TURKEY EGG GATHERER null, [facility] 06/10/2024 15:57:15 meningococcal MCV4P 4 completed Vero Caporale, TURKEY EGG GATHERER null, [facility] 06/10/2024 15:57:15 meningococcal MCV4P 9 completed Vero Caporale, TURKEY EGG GATHERER null, [facility] 06/10/2024 15:57:15 DTaP, unspecified formulation 8 completed Evro Caporale, TURKEY EGG GATHERER null, [facility] 06/10/2024 15:57:15 DTaP, unspecified formulation 3 completed Vero Caporale, TURKEY EGG GATHERER null, [facility] 06/10/2024 15:57:15 DTaP, unspecified formulation 3 completed Vero Caporale, TURKEY EGG GATHERER null, [facility] 06/10/2024 15:57:15 DTaP, unspecified formulation 4 completed Vero Caporale, TURKEY EGG GATHERER null, [facility] 06/10/2024 15:57:15 DTaP, unspecified formulation 3 completed Vero Caporale, TURKEY EGG GATHERER null, [facility] 06/10/2024 15:57:15 Influenza, live, quadrivalent, intranasal 4 completed Vero Caporale, TURKEY EGG GATHERER null, [facility] 06/10/2024 15:57:15 Influenza, split virus, quadrivalent, PF 6 completed Vero Caporale, TURKEY EGG GATHERER null, [facility] 06/10/2024 15:57:15 Influenza, split virus, quadrivalent, PF 9 completed Vero Caporale, TURKEY EGG GATHERER null, [facility] 06/10/2024 15:57:15 Influenza, split virus, quadrivalent, PF 0 completed Vero Caporale, TURKEY EGG GATHERER null, [facility] 06/10/2024 15:57:15 Influenza, split virus, quadrivalent, PF 1 completed Vero Caporale, TURKEY EGG GATHERER null, [facility] 06/10/2024 15:57:15 Influenza, split virus, quadrivalent, PF 3 completed Vero Caporale, TURKEY EGG GATHERER null, [facility] 06/10/2024 15:57:15 Influenza, split virus, quadrivalent, PF 3 completed Vero Caporale, TURKEY EGG GATHERER null, [facility] 06/10/2024 15:57:16 Influenza, split virus, quadrivalent, PF 8 completed Vero Caporale, TURKEY EGG GATHERER null, [facility] 06/10/2024 15:57:16 Influenza, split virus, quadrivalent, PF 5 completed Vero Caporale, TURKEY EGG GATHERER null, [facility] 06/10/2024 15:57:16 Td (adult), 2 Lf tetanus toxoid, preservative free, adsorbed 4 completed Alessandro Mcdonnell PA-C [address], [address], [facility] 06/10/2024 17:22:39 Past Encounters Encounter ID Performer Location Encounter Start Date Encounter Closed Date Diagnosis/Indication Diagnosis SNOMED-CT Code Diagnosis ICD10 Code Diagnosis Note [id number] Alessandro Mcdonnell PA-C Main Office [address] [address] 06/10/2024 15:44:41 06/10/2024 16:57:35 Adult health examination 420958963 Z00.00 Requires a tetanus booster 291185988 Z23 Hepatitis C screening 41 7061565 Z11.59 Hyperlipidemia 69947768 E78.5 Body mass index 25-29 - overweight 765303760 E66.3 Z68.28 Contact [facility] [id number] X58.XXXD better on pred taper [place] [facility] Health Concerns Section Related Observation LastModified by Organization Detai ls LastModified Time None Recorded Concern Status LastModified by Organization Details LastModified Time None Recorded Advance Directives Directive None Recorded Payers Encounter Date Sequence Insurance Name Policy Number Policy Brown Covered Member ID Brown Member ID Guarantor Name 06/10/[address] 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 Alessandro Mcdonnell PA-C [address] [facility] [address], [place], [address], [facility] 06/10/2024 17:29:25
--- NOTE | 2024-11-22 08:14 | MHC.OFFVIS ---
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 Intake Note: Erik is a 24 year old male who presents today for evaluation of his left knee injury, DOI 11/03/24. Patient reports a kid fell on him while playing soccer. He rembers falling on to his left knee but does not remember what happened after besides onset of pain. He reports swelling has gone down but there is still some present. He is not taking anything for pain at this time. Denies numbness or tingling. He shares he was seen somewhere prior to seeing us. He was told his x-rays were normal and was given a brace with a mechanical thing on the sides , however, he is not wearing it today due to the complexity of putting it on and taking it off for during today's evaluation. Patient did say he is wearing a much smaller ankle brace today. 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 He states there was a knee to knee collision that hit him on the medial side of the knee. He states he was doing ok; however, over night he noticed the knee swelled and he had difficulty with WB. IBu prn. No prior injuries to the knee. [facility] Social History (Updated 11/22/24 @ 08:17 by SYBIL Sewell) Patient Tobacco Use Status: Never used Tobacco Current occupational status: employed Current occupation: [employer], rt handed Review of Systems Const All systems reviewed & are unremarkable except as noted in HPI and below Physical Exam Vital Signs: BMI result Body Mass Index 29.8 Const General: cooperative and no acute distress Orientation/consciousness: patient oriented x3 Resp Effort & Inspection: normal respiratory effort and able to speak in complete sentences Cardio Peripheral pulses: Peripheral pulses 2+ throughout Neuro General: patient oriented x3 Extrem Other: Left knee skin intact, No erythema or effusion noted. He has full range of motion without crepitus. No specific tenderness to palpation along the knee. No ligamentous laxity. No pain with varus valgus stress testing. Neurovascularly intact. Results Reviewed Results Reviewed: X-rays of the left knee obtained in the office today are negative for any acute or chronic abnormalities. Assessment & Plan Assessment & Plan (1) Chondromalacia, left knee: Code(s): M94.262 - Chondromalacia, left knee Category: Medical Plan: In the absence of pain or reproducible symptoms on exam I did recommend a course of physical therapy to work on some strengthening and conditioning exercises. He will hold off on therapy at this time. Does have a knee brace which he states he is comfortable with. If symptoms persist or worsen he will contact our office otherwise follow-up as needed. Orders: Orders XR knee LT 3V Today M25.562 - Pain in left knee XR knee RT 1V Today M25.561 - Pain in right knee Medications: New ibuprofen 800 mg PO Q8H PRN 90 tabs 3RF pain 30 days Coding Level of Care Code New Pt Level 3 (81379) Complex EM visit Add On G2211 Diagnoses Chondromalacia, left knee M94.262
[2024-11-22 08:16] VITALS: BMI 29.8
== END 2024-11-22 08:47 | disposition home or self-care (01) ==
PROVIDERS: PCP Physician Assistant Medical; Visit Provider Physician Assistant
DX: M94.262 Chondromalacia, left knee (principal)
CPT/HCPCS: 99203

== ENCOUNTER 2024-11-22 08:38 | Outpatient (REF) | payer OTHER, SELFPAY ==
--- NOTE | ~2024-11-22 | XR_ITS ---
EXAMINATION: XR KNEE, LEFT CLINICAL INFORMATION: M25.562 - Pain in left knee COMPARISON: None available. TECHNIQUE: Three views of the left knee. AP view both knees in FINDINGS: No acute cortical disruption or malalignment. Articular surface sclerosis of the medial tibial plateau both kidneys with slight asymmetric joint space narrowing. No acute cortical disruption or malalignment. No suprapatellar bursa joint effusion. Probable bony island in the proximal metaphysis of the right tibia. XR/XR knee LT 3V IMPRESSION: Mild medial compartment osteoarthrosis both knees. Electronically signed by: Yo Lee MD 11/22/2024 08:17 AM EST
--- OUTSIDE RECORDS SUMMARY | 2024-11-25 08:57 | XMS_ITS | Data Portability ---
Author Organization [place] [facility], [facility] Address [address] [place] [id number] Assessment Encounter Date Assessment Date Assessment LastModified [...] d. Lab lipid panel, blood 021 07/26/20 [facility], [address] [place] [address], [phone], 15:29:42 CT + NG DNA, PCR, urine 021 07/26/20 21 [facility], [address] [place] [address], [phone], 15:59:50 CT + NG DNA, PCR, urine 022 05/19/20 22 [facility], [address] [place] [address], [phone], 15:54:15 CT + NG DNA, PCR, urine 023 06/08/20 23 ZAHRA [facility], [address] [place] [address], [place], [phone], 16:01:53 Referral None recorde d. Procedures None recorde d. Surgeries None recorde d. Imaging None recorde d. Medication Orders None recorde d. Patient TargetsNo targets recorded. Patient Instructions Encounter Date Encounter Id Patient Instructions Last Modified By Organization Details Last Modified Time 06/30/2020 [id number] patient health questionnaire modified for adolescents* ZAHRA Not available 06/30/2020 15:10:41 immunization: what you need to know jyunis Not available 06/30/2020 14:21:35 07/26/2021 [id number] patient health questionnaire depression assessment* jyunis Not available 07/26/2021 15:20:31 immunization: what you need to know jyunis Not available 07/26/2021 15:20:30 05/19/2022 [id number] program - 5 fruits & veggies jyunis Not available 05/19/2022 15:46:18 [id number] program - 1 hour of exercise jyunis Not available 05/19/2022 15:46:19 patient health questionnaire depression assessment* ZAHRA Not available 05/19/2022 16:03:04 We have discusse d that it is now time for the patient to work on selecting a new adult medicine provider. mpotterton Not available 05/18/2022 11:21:46 06/08/2023 [id number] immunization: what you need to know jyunis [...] scent s* PHQ-9 negati ve Not Available [facility] [address] [facility], [place], [address], 06/30/2020 08:45:23 07/26/20 21 07/27/2021 URINE CHLAM [...] C. Trach omati s Not Available [facility] [address] [place], [address], 07/27/2021 10:18:02 07/26/20 21 07/27/2021 URINE CHLAM [...] Disea se Contr ol and Preve ntion ([facility]) recom mends confi rmato ry retes ting using cultu re or a diffe rent nucle ic acid ampli ficat ion test when posit rome resul ts occur , if indic ated. Not Available [facility] [place], [address], 07/27/2021 10:18:02 07/26/20 21 07/26/2021 patie nt healt h quest ionna sandra depre ssion asses sment * PHQ-9 negati ve Not Available [facility] [address] [place] [address], [phone], 07/26/2021 08:12:28 05/19/20 22 05/20/2022 URINE CHLAM [...] Available [facility] [address] [place], [address], 05/20/2022 12:04:13 05/19/20 22 05/20/2022 URINE CHLAM [...] neede d. Conta ct phone numbe r [phone]. Thera peuti c failu re or succe ss canno t be deter mined with the Aptim a Combo 2 assay since nucle ic acid may persi st follo wing appro priat e antim icrob ial thera py. The Cente rs for Disea se Contr ol and Preve ntion ([facility]) recom mends confi rmato ry retes ting using cultu re or a diffe rent nucle ic acid ampli ficat ion test when posit rome resul ts occur , if indic ated. Not Available [facility] [address], [place], [address], 05/20/2022 12:04:13 05/19/20 22 05/19/2022 patie nt healt h quest ionna sandra depre ssion asses sment * PHQ-9 negati ve Not Available [facility] [address] [facility], [place], [address], 05/18/2022 11:21:53 06/08/20 23 06/09/2023 CHLAM YDIA/ [...] Not Available [facility] [address], [place], [address], 06/09/2023 11:22:36 06/08/20 23 06/09/2023 CHLAM YDIA/ [...] Disea se Contr ol and Preve ntion ([facility]) recom mends confi rmato ry retes ting using cultu re or a diffe rent nucle ic acid ampli ficat ion test when posit rome resul ts occur , if indic ated. Not Available [facility] [address] [place], [address], 06/09/2023 11:22:36 Result Notes None recorded. Problems Name Problem SNOMED Code Status Onset Date Resolution Date Notes Provider Name and Address Organization Details Recorded Time Unexplaine d weight loss 918532472 Active Taco Lu MD [address] [place] [address], , [facility] 4 18:01:21 Otitis 53670645 Active Taco Lu MD [address] [place] [address], , [facility] 5 12:41:45 Impacted cerumen 71088296 Completed 03/17/2016 Taco Lu MD [address] [place] [address], [place], [address] , [facility] 6 10:56:28 Acute sinusitis 32949175 Completed 03/15/2013 Not Available [facility] 3 03:01:56 Acute upper respirator y infection 52683337 Completed 200602/06/2012 Not Available [facility] 3 03:01:56 Wrist joint pain 338527861 Completed 03/15/2013 Not Available [facility] 3 03:01:56 Pneumonia 855284775 Completed 200602/06/2012 Not Available [facility] 3 03:01:56 Verruca vulgaris 03177856 Completed 200702/06/2012 Not Available [facility] 3 03:01:56 Croup 19882340 Completed 03/15/2013 Not Available [facility] 3 03:01:56 Non-suppur ative otitis media with eustachian tube disorder 280957179 Completed 02/06/2012 Not Available [facility] 3 03:01:56 Diarrhea 10517399 Completed 03/15/2013 Not Available [facility] 3 03:01:56 Molluscum contagiosu m infection 90107819 Completed 200702/06/2012 Not Available [facility] 3 03:01:56 Otitis externa 7192068 Completed 200802/06/2012 Not Available [facility] 3 03:01:56 Allergic rhinitis 55638484 Completed 02/06/2012 Not Available [facility] 3 03:01:56 Acute pharyngiti s 100817996 Completed 03/15/2013 Not Available [facility] 3 03:01:56 Acute pharyngiti s 064821176 Completed 200602/06/2012 Not Available [facility] 3 03:01:56 Problem Notes None recorded. Procedures Surgical History Date Name Laterality Status Provider Name and Address Organization Details Recorded Time 5 Wax Removal with Curette Unilateral With or Without Irrigation completed Taco Lu MD [address], [place], , [facility] 09/18/2015 12:03:06 1 Wart removal completed Taco Lu MD [address], [place], , [facility] 12/14/2010 18:28:08 0 Wart removal completed Raymond Bensonkathy [facility] 03/08/2010 15:15:55 Imaging Results None recorded. [...] Available Not Available Not Available Afluria Quad 7080-6629 (PF) 60 mcg (15 mcg x 4)/0.5 [...] 0 179.71 cm 86 % 25.7 kg/m2 47934.4 g 112 mm[Hg] 62 mm[Hg] Nel Garland R.N. [facility] 0 14:09:05 Date Recorded Body height Body mass index (BMI) Body mass index (BMI) Percentile per age and sex Body weight Systolic blood pressure Diastolic blood pressure Provider Name and Address Organization Details Last Updated DateTime 1 179.71 cm 26.7 kg/m2 87 % 45217.8 3 g 110 mm[Hg] 70 mm[Hg] Jihan burt M.A. [facility] 1 15:14:11 Date Recorded Body height Body mass index (BMI) Body mass index (BMI) Percentile per age and sex Body weight Systolic blood pressure Diastolic blood pressure Provider Name and Address Organization Details Last Updated DateTime 2 179.71 cm 25.1 kg/m2 74 % 09582.3 2 g 112 mm[Hg] 68 mm[Hg] Carolann Whiting MA [facility] 2 15:37:01 Date Recorded Body height Body mass index (BMI) Body mass index (BMI) Percentile per age and sex Body weight Systolic blood pressure Diastolic blood pressure Provider Name and Address Organization Details Last Updated DateTime 3 182.24 cm 27.3 kg/m2 84 % 76181.7 6 g 114 mm[Hg] 78 mm[Hg] Kathy Mcgovern RN [facility] 3 15:51:59 Social History Question Answer Notes LastModified by Organizat ion Details LastModified Time Tobacco Smoking Status Never Smoker Nellie still [facility] 08/30/2012 16:59:55 Have There Been Any [...] Information not available 08/20/2011 Year In School [employer] [facility] cszczepmelina Information not available 07/26/2021 Parent's Name [...] IMMUNOLOGIC PROBLEMS N DEVELOPMENTAL/ BEHAVIORAL PROBLEMS N ACCIDENTS INJURIES N ENDOCRINE PROBLEMS/DIABETES N GI PROBLEMS/CONSTIPATION N ENT PROBLEMS/OTITIS MEDIA/ CHRONIC N HEMATOLOGIC /ONCOLOGIC PROBLEMS N RENAL PROBLEMS N ADHD N CONGENITAL AND GENETIC PROBLEMS N PSYCH PROBLEMS N HOSPITALIZATIONS N ORTHOPEDIC PROBLEMS N CHICKEN POX / VARICELLA HISTORY or POSIT ROME TITER N MUSCLE/ JOINT/ BONE PROBLEMS N DERMATOLOGIC PROBLEMS/ECZEMA N NEUROLOGIC/ SEIZURES OR CONVULSIONS N HEADACHES/MIGRAINES/DIZZINESS N PUMONARY PROBLEMS/ ASTHMA N Immunizations Vaccine Type Date Status Note Provider Nam e and Address Organization Details Recorded Time DTaP, unspecified formulation 8 completed Not Available [facility] 08/20/2011 03:16:44 IPV 8 completed Not Available [facility] 08/20/2011 03:16:44 varicella 8 completed Not Available [facility] 08/20/2011 03:16:44 Influenza, split virus, trivalent, PF 1 completed Not Available [facility] 11/02/2019 02:38:39 Influenza, split virus, trivalent, preservative 2 completed Not Available [facility] 11/02/2019 02:35:24 influenza, unspecified formulation 8 completed Not Available [facility] 08/20/2011 03:16:44 Influenza, split virus, quadrivalent, PF 3 completed Not Available [facility] 11/02/2019 02:35:37 HPV, quadrivalent 4 completed Not Available [facility] 11/02/2019 02:34:12 Tdap 4 completed Not [...] completed Not Available [facility] 11/02/2019 02:36:55 Novel [id number] 0 completed Not Available [facility] 11/02/2019 02:34:47 COVID-19, mRNA, LNP-S, PF, 100 mcg/0.5mL dose or 50 mcg/0.25mL dose 1 completed Heriberto Casanova, [facility] 04/29/2021 15:18:14 COVID-19, mRNA, LNP-S, PF, 100 mcg/0.5mL dose or 50 mcg/0.25mL dose 1 completed Heriberto Casanova, [facility] 04/29/2021 15:18:27 influenza, unspecified formulation 9 completed Not Available [facility] 08/20/2011 03:17:07 meningococcal MCV4P 9 completed Not Available [facility] 11/02/2019 02:39:32 Influenza, split virus, quadrivalent, PF 9 completed Not Available [facility] 11/02/2019 02:39:31 Hep A, ped/adol, 2 dose 0 completed Taco Lu MD [address] [place] [address], [phone], [facility] 06/30/2020 15:42:52 Influenza, split virus, quadrivalent, PF 0 completed Taco Lu MD [address], [place], , [facility] 06/30/2020 15:42:52 meningococcal B, OMV 0 completed Taco Lu MD [address], [place], , [facility] 06/30/2020 15:42:52 Hep A, ped/adol, 2 dose 1 [facility] 04/29/2021 15:29:58 meningococcal B, OMV 1 completed [facility] 04/29/2021 15:29:58 Influenza, split virus, quadrivalent, PF 1 completed Jihan Yi M.A. [facility] 07/26/2021 15:29:18 influenza, unspecified formulation 7 completed Not Available [facility] 08/20/2011 03:16:44 Novel [id number], all formulations 9 completed Not Available [facility] 11/16/2019 02:10:49 DTaP, unspecified formulation 4 completed Not Available [facility] 08/20/2011 03:19:09 DTaP, unspecified formulation 3 completed Not Available [facility] 08/20/2011 03:17:38 DTaP, unspecified formulation 3 [...] 08/20/2011 03:17:38 MMR 7 completed Not Available [facility] 08/20/2011 03:17:38 Hib, unspecified formulation 3 completed Not Available [facility] 08/20/2011 03:19:09 Hib, unspecified formulation 3 completed Not Available [facility] 08/20/2011 03:17:38 Hib, unspecified formulation 3 completed Not Available [facility] 08/20/2011 03:17:38 Hep B, unspecified formulation 2 completed Not Available [facility] 08/20/2011 03:17:38 Hep B, unspecified formulation 3 completed Not Available [facility] 08/20/2011 03:17:38 Hep B, unspecified formulation 3 completed Not Available [facility] 08/20/2011 03:17:38 pneumococcal conjugate PCV 7 3 completed Not Available [facility] 08/20/2011 03:17:38 pneumococcal conjugate PCV 7 3 completed Not Available [facility] 08/20/2011 03:17:38 pneumococcal conjugate PCV 7 3 completed Not Available [facility] 08/20/2011 03:17:38 pneumococcal conjugate PCV 7 3 completed Not Available [facility] 08/20/2011 03:17:38 varicella 3 completed Not Available [facility] 08/20/2011 03:19:09 Influenza, split virus, trivalent, preservative 0 completed Not Available [facility] 11/02/2019 02:35:06 Past Encounters Encounter ID Performer Location Encounter Start Date Encounter Closed Date Diagnosis/Indication Diagnosis SNOMED-CT Code Diagnosis ICD10 Code Diagnosis Note [id number] [facility] [place] [address] [facility] [place] [id number] 06/20/2007 11:30:11 06/20/2007 12:02:00 [id number] [facility] [place] [facility] [address] [facility] [place] [id number] 07/03/2007 16:03:17 07/03/2007 16:35:01 [id number] [facility] [place] [facility] [address] [facility] [place] [address] 08/14/2007 14:27:16 08/14/2007 14:38:01 [id number] [facility] [place] [facility] [address] [place] [address] 09/10/2007 16:05:07 09/10/2007 16:29:56 [id number] [facility] [place] [facility] [address] [place] [address] 09/20/2007 16:18:26 09/20/2007 16:51:12 [id number] [facility] [place] [facility] [address] [place] [address] 11/27/2007 16:01:15 11/27/2007 16:58:31 [id number] [facility] [place] [facility] [address] [place] [address] 04/15/2008 09:35:25 06/25/2009 01:23:50 [id number] [facility] [place] [facility] [address] [place] [address] 05/01/2008 11:32:10 06/25/2009 01:23:50 [id number] [facility] [place] [facility] [address] [place] [address] 08/18/2008 16:17:19 08/18/2008 16:28:27 [id number] [facility] [place] [facility] [address] [place] [address] 08/28/2008 16:18:39 08/28/2008 16:43:41 [id number] [facility] [place] [facility] [address] [place] [address] 10/17/2008 16:58:20 10/17/2008 17:31:08 [id number] [facility] [place] [facility] [address] [place] [address] 12/11/2008 13:18:06 12/11/2008 13:54:06 [id number] [facility] [place] [facility] [address] [place] [address] 02/26/2009 15:40:42 02/26/2009 16:10:45 [id number] [facility] [place] [facility] [address] [place] [address] 12/14/2009 15:56:17 12/14/2009 16:57:36 [id number] [facility] [place] [facility] [address] [place] [id number] 02/27/2010 09:44:18 02/27/2010 10:11:23 [id number] [facility] [place] [facility] [address] [place] [address] 03/08/2010 14:43:24 03/08/2010 15:26:04 [id number] [facility] [place] [facility] [address] [place] [address] 4 05/06/2010 11:05:31 05/06/2010 11:51:38 [id number] [facility] [place] [facility] [address] [place] [id number] 12/14/2010 16:11:26 12/14/2010 18:29:18 [id number] [facility] [place] [facility] [address] [place] [address] 02/17/2011 15:43:27 02/17/2011 16:14:16 [id number] [facility] [place] [facility] [address] [place] [id number] 02/06/2012 13:21:45 02/06/2012 14:02:42 [id number] [facility] [place] [facility] [address] [place] [address] 05/07/2012 11:00:30 05/07/2012 12:08:39 [id number] Danni Diaz MD [facility] [address] [place] [id number] 08/30/2012 16:43:56 08/30/2012 17:19:47 [id number] Isabel Bustamante M.A. [facility] [address] [place] [id number] 10/08/2012 11:06:40 10/08/2012 11:47:45 [id number] Taco Lu MD [facility] [place] [address] [place] [id number] 03/15/2013 14:06:29 03/15/2013 14:38:23 [id number] [facility] [place] [facility] [address] [place] [id number] 02/18/2014 11:08:20 02/18/2014 11:58:50 Well child [id number] [id number] Nancie Almodovar [address] [address] 05/13/2014 14:29:53 05/13/2014 14:36:29 Administration of viral vaccine 99595142 Shot only HPV [id number] Princess Bardales [address] [address] 07/08/2014 15:08:59 07/08/2014 17:17:38 Unexplained weight loss 405481957 [id number] Jihan Yi M.A. [address] [address] 10/02/2014 16:23:28 10/02/2014 18:01:47 Administration of viral vaccine 10494431 Shot only HPV Unexplaine d weight loss 194870686 [id number] [address] [address] 03/23/2015 15:06:41 03/23/2015 15:39:53 Well child 287188961 [id number] Asif Mooney MD [address] [address] 08/19/2015 10:39:55 08/19/2015 11:10:23 Viral syndrome 268485478 B34.9 Discussed supp care and expected course - will push fluids, trial nasal saline, motrin PRN; RTO if persistent fevers, diff breathing or other concerns [id number] Taco Lu MD [address] [address] 09/18/2015 11:25:28 09/18/2015 12:42:20 Otitis 64038137 H66.91 Impacted cerumen 9503535 6 H61.21 [id number] Taco Lu MD [address] [address] 03/17/2016 10:46:45 03/17/2016 11:21:03 Allergic conjunctivitis 834554190 H10.13 [id number] Taco Lu MD [address] [address] 04/21/2016 16:02:42 04/21/2016 16:27:44 Well child 969959410 Z00.129 [id number] Taco Lu MD [address] [address] 06/23/2016 13:35:34 06/23/2016 17:32:23 Influenza vaccine needed 9041923965 106 Z23 [facility] 53084723 L70.9 [id number] Taco Lu MD [address] [address] 05/24/2017 15:07:05 05/24/2017 15:26:43 Well child 604128233 Z00.129 [id number] Taco Lu MD [address] [address] 04/06/2018 14:33:46 04/06/2018 14:59:11 Acne 64270554 L70.9 [id number] Taco Lu MD [address] [address] 4 06/06/2018 10:11:55 06/06/2018 10:53:25 Well child 995258555 Z00.129 Normal weight 23938909 Z 68.52 [id number] Taco Lu MD [address] [address] 06/24/2019 13:53:28 06/24/2019 14:44:59 Well child 164800323 Z00.129 Normal weight 45689911 Z 68.52 Active or passive immunization 894336606 Z23 [id number] Taco Lu MD [address] [address] 06/30/2020 14:00:22 06/30/2020 15:43:58 Active or passive immunization 291356243 Z23 Well child 837756764 Z00 .129 Normal weight 94869702 Z 68.52 Exercises education, guidance, and counseling 831196372 Z71.82 Diet education 99723167 Z71.3 [id number] Apurva Arteaga [address] [address] 04/29/2021 14:58:30 04/29/2021 15:32:59 Active or passive immunization 820292586 Z23 [id number] Taco Lu MD [facility] [address] [address] 07/26/2021 15:08:30 07/26/2021 15:37:42 Active immunization 29154381 Z23 Adult heal th examination 440164473 Z00.00 Increased body mass index 74637427 E66.3 Hyperlipid emia screening 075096241 Z13.220 [id number] Taco Lu MD [facility] [address] [place] [address] 05/19/2022 15:06:17 05/19/2022 16:58:11 Adult health examination 080598154 Z00.00 Diet education 04106097 Z71.3 Exercises education, guidance, and counseling 815554174 Z71.82 Normal bod y mass index 47576178 Z68.24 [id number] Taco Lu MD [facility] [address] [address] 06/08/2023 15:48:24 06/08/2023 16:01:41 Adult health examination 445124606 Z00.00 Increased body mass index 66620858 E66.3 Diet education 43481187 Z71.3 Exercises education, guidance, and counseling 707362189 Z71.82 Health Concerns Section Related Observation LastModified by Organization Detai ls LastModified Time None Recorded Concern Status LastModified by Organization Details LastModified Time None Recorded Advance Directives Directive None Recorded Payers Encounter Date Sequence Insurance Name Policy Number Policy Brown Covered Member ID Brown Member ID Guarantor Name 06/30/2020 1 [place] [facility] [id number] Chernatalie Bonavita [id number] 04/29/2021 1 [place] [facility] [id number] Cherelyn Bonavita [id number] 07/26/2021 1 [place] [facility] [id number] Chertoñon Bonavita [id number] 05/19/2022 1 [facility] ([place]) [id number] Lan Nietoantis [id number] Blas Ramose 06/08/2023 1 [facility] ([facility]) [id number] Lan Nietoantis [id number] Blas Lopez Notes Date Note Type Note Provider Name and Address Organization Details Recorded Time 06/30/2020 text/html Pt is afebrile. No ill symptoms in >10 days. No known Covid 19 exposure. No travel out of [place] in > 2 weeks. Taco Lu MD [address] [place] [address], , [facility] 06/30/2020 15:43:27 07/26/2021 text/html Pt and parent are afebrile. No ill symptoms in >10 days. No known Covid 19 exposure. No travel out of [place] in last 2 weeks. Taco Lu MD [address] [place] [address], , [facility] 07/26/2021 15:36:56
--- OUTSIDE RECORDS SUMMARY | 2024-11-25 08:57 | XMS_ITS | Data Portability ---
Author Organization [facility], Main Office Address [address] [facility] [facility] [place] [id number] Care Team Providers Care Pharmacy Customer Care Specialist Name Role Phone ALESSANDRO MCDONNELL Primary Care Provider [phone] Assessment No assessment recorded. Plan of Treatment Reminders Order Date Submit Date Provider Last Modified By Organization Details Last Modified Time Details Appointments None recorded. Lab lipid panel, serum 2023 [place] [facility], [address], [address], 4 16:45:54 CMP, serum or plasma 2023 024 [place] [facility], [address], [address], 4 16:45:55 CBC w/ auto diff 2023 [place] [facility], [address] [address], [place], [address], 4 16:45:55 CT + NG RNA, PCR, unspecified specimen 2023 024 [place] [facility], [address] [facility], [facility] [address], [place], [address], 4 16:45:54 Hepatitis C IgG Ab, qual, serum 2023 [place] [facility], [address] [facility], [address] [address], [place], [address], 4 16:42:27 Referral nutritionis t/dietitian referral 2023 [email or web address] Not available 09:42:52 Procedures None recorded. Surgeries None recorded. Imaging None recorded. Medication Orders None recorded. 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 Medical [...] Updated DateTime 4 180.34 cm 28.8 kg/m2 15993.4 3 g 56 /min 98 % 98 % 98.5 [degF] 95 mm[Hg] 60 mm[Hg] Vero Souza LPN [facility] 15:56:00 Social History Question Answer Notes LastModified by Organizat ion Details LastModified Time Tobacco Smoking Status Current Some Day Smoker Vero Souza LPN [facility] 06/10/2024 15:59:30 What Is Your Level Of [...] Hib, unspecified formulation 3 completed Vero Caporale, DISTRICT SALES MANAGER null, [facility] 06/10/2024 15:57:14 Hib, unspecified formulation 4 completed Vero Caporale, DISTRICT SALES MANAGER null, [facility] [place] 06/10/2024 15:57:15 Hib, unspecified formulation 3 completed Vero Caporale, DISTRICT SALES MANAGER null, [facility] 06/10/2024 15:57:15 Hib, unspecified formulation 3 completed Vero Caporale, DISTRICT SALES MANAGER null, [facility] 06/10/2024 15:57:15 meningococcal B, OMV 1 completed Vero Caporale, DISTRICT SALES MANAGER null, [facility] 06/10/2024 15:57:15 meningococcal B, OMV 0 completed Vero Caporale, DISTRICT SALES MANAGER null, [facility] 06/10/2024 15:57:15 IPV 8 completed Vero Caporale, DISTRICT SALES MANAGER null, [facility] 06/10/2024 15:57:15 IPV 3 completed Vero Caporale, DISTRICT SALES MANAGER null, [facility] 06/10/2024 15:57:15 IPV 3 completed Vero Caporale, DISTRICT SALES MANAGER null, [facility] 06/10/2024 15:57:15 IPV 4 completed Vero Caporale, DISTRICT SALES MANAGER null, [facility] 06/10/2024 15:57:15 Influenza, MDCK, quadrivalent, PF 7 completed Vero Caporale, DISTRICT SALES MANAGER null, [facility] 06/10/2024 15:57:15 MMR 4 completed Vero Caporale, DISTRICT SALES MANAGER null, [facility] 06/10/2024 15:57:15 MMR 7 completed Vero Caporale, DISTRICT SALES MANAGER null, [facility] 06/10/2024 15:57:15 COVID-19, mRNA, LNP-S, PF, 100 mcg/0.5mL dose or 50 mcg/0.25mL dose 2 completed Vero Caporale, DISTRICT SALES MANAGER null, [facility] 06/10/2024 15:57:15 COVID-19, mRNA, LNP-S, PF, 100 mcg/0.5mL dose or 50 mcg/0.25mL dose 1 completed Vero Caporale, DISTRICT SALES MANAGER null, [facility] 06/10/2024 15:57:15 COVID-19, mRNA, LNP-S, PF, 100 mcg/0.5mL dose or 50 mcg/0.25mL dose 1 completed Vero Caporale, DISTRICT SALES MANAGER null, [facility] 06/10/2024 15:57:15 pneumococcal conjugate PCV 7 3 completed Vero Caporale, DISTRICT SALES MANAGER null, [facility] 06/10/2024 15:57:15 pneumococcal conjugate PCV 7 3 completed Vero Caporale, DISTRICT SALES MANAGER null, [facility] 06/10/2024 15:57:15 pneumococcal conjugate PCV 7 3 completed Vero Caporale, DISTRICT SALES MANAGER null, [facility] 06/10/2024 15:57:15 pneumococcal conjugate PCV 7 3 completed Vero Caporale, DISTRICT SALES MANAGER null, [facility] 06/10/2024 15:57:15 influenza, unspecified formulation 9 completed Vero Caporale, DISTRICT SALES MANAGER null, [facility] 06/10/2024 15:57:15 influenza, unspecified formulation 7 completed Vero Caporale, DISTRICT SALES MANAGER null, [facility] 06/10/2024 15:57:15 influenza, unspecified formulation 8 completed Vero Caporale, DISTRICT SALES MANAGER null, [facility] 06/10/2024 15:57:15 Tdap 4 completed Vero Caporale, DISTRICT SALES MANAGER null, [facility] 06/10/2024 15:57:15 Novel [id number], all formulations 9 completed Vero Caporale, DISTRICT SALES MANAGER null, [facility] 06/10/2024 15:57:15 varicella 8 completed Vero Caporale, DISTRICT SALES MANAGER null, [facility] 06/10/2024 15:57:15 varicella 3 completed Vero Caporale, DISTRICT SALES MANAGER null, [facility] 06/10/2024 15:57:15 Hep B, unspecified formulation 3 completed Vero Caporale, DISTRICT SALES MANAGER null, [facility] 06/10/2024 15:57:15 Hep B, unspecified formulation 3 completed Vero Caporale, DISTRICT SALES MANAGER null, [facility] 06/10/2024 15:57:15 Hep B, unspecified formulation 2 completed Vero Caporale, DISTRICT SALES MANAGER null, [facility] 06/10/2024 15:57:15 Influenza, split virus, trivalent, preservative 2 completed Vero Caporale, DISTRICT SALES MANAGER null, [facility] 06/10/2024 15:57:15 Influenza, split virus, trivalent, preservative 0 completed Vero Caporale, DISTRICT SALES MANAGER null, [facility] 06/10/2024 15:57:15 Influenza, split virus, trivalent, PF 1 completed Vero Caporale, DISTRICT SALES MANAGER null, [facility] 06/10/2024 15:57:15 Novel [id number] 0 completed Vero Caporale, DISTRICT SALES MANAGER null, [facility] 06/10/2024 15:57:15 HPV, quadrivalent 4 completed Vero Caporale, DISTRICT SALES MANAGER null, [facility] 06/10/2024 15:57:15 HPV, quadrivalent 4 completed Vero Caporale, DISTRICT SALES MANAGER null, [facility] 06/10/2024 15:57:15 HPV, quadrivalent 4 completed Vero Caporale, DISTRICT SALES MANAGER null, [facility] 06/10/2024 15:57:15 Hep A, ped/adol, 2 dose 1 completed Vero Caporale, DISTRICT SALES MANAGER null, [facility] 06/10/2024 15:57:15 Hep A, ped/adol, 2 dose 0 completed Vero Caporale, DISTRICT SALES MANAGER null, [facility] 06/10/2024 15:57:15 meningococcal MCV4P 4 completed Vero Caporale, DISTRICT SALES MANAGER null, [facility] 06/10/2024 15:57:15 meningococcal MCV4P 9 completed Vero Caporale, DISTRICT SALES MANAGER null, [facility] 06/10/2024 15:57:15 DTaP, unspecified formulation 8 completed Vero Caporale, DISTRICT SALES MANAGER null, [facility] 06/10/2024 15:57:15 DTaP, unspecified formulation 3 completed Vero Caporale, DISTRICT SALES MANAGER null, [facility] 06/10/2024 15:57:15 DTaP, unspecified formulation 3 completed Vero Caporale, DISTRICT SALES MANAGER null, [facility] 06/10/2024 15:57:15 DTaP, unspecified formulation 4 completed Vero Caporale, DISTRICT SALES MANAGER null, [facility] 06/10/2024 15:57:15 DTaP, unspecified formulation 3 completed Vero Caporale, DISTRICT SALES MANAGER null, [facility] 06/10/2024 15:57:15 Influenza, live, quadrivalent, intranasal 4 completed Vero Caporale, DISTRICT SALES MANAGER null, [facility] 06/10/2024 15:57:15 Influenza, split virus, quadrivalent, PF 6 completed Vero Caporale, DISTRICT SALES MANAGER null, [facility] 06/10/2024 15:57:15 Influenza, split virus, quadrivalent, PF 9 completed Vero Caporale, DISTRICT SALES MANAGER null, [facility] 06/10/2024 15:57:15 Influenza, split virus, quadrivalent, PF 0 completed Vero Caporale, DISTRICT SALES MANAGER null, [facility] 06/10/2024 15:57:15 Influenza, split virus, quadrivalent, PF 1 completed Vero Caporale, DISTRICT SALES MANAGER null, [facility] 06/10/2024 15:57:15 Influenza, split virus, quadrivalent, PF 3 completed Vero Caporale, DISTRICT SALES MANAGER null, [facility] 06/10/2024 15:57:15 Influenza, split virus, quadrivalent, PF 3 completed Vero Caporale, DISTRICT SALES MANAGER null, [facility] 06/10/2024 15:57:16 Influenza, split virus, quadrivalent, PF 8 completed Vero Caporale, DISTRICT SALES MANAGER null, [facility] 06/10/2024 15:57:16 Influenza, split virus, quadrivalent, PF 5 completed Vero Caporale, DISTRICT SALES MANAGER null, [facility] 06/10/2024 15:57:16 Td (adult), 2 Lf tetanus toxoid, preservative free, adsorbed 4 completed Alessandro Mcdonnell PA-C [address], [address], [facility] 06/10/2024 17:22:39 Past Encounters Encounter ID Performer Location Encounter Start Date Encounter Closed Date Diagnosis/Indication Diagnosis SNOMED-CT Code Diagnosis ICD10 Code Diagnosis Note [id number] Alessandro Mcdonnell PA-C Main Office [address] [id number] 06/10/2024 15:44:41 06/10/2024 16:57:35 Adult health examination 263829594 Z00.00 Requires a tetanus booster 631908811 Z23 Hepatitis C screening 41 9108003 Z11.59 Hyperlipidemia 13144183 E78.5 Body mass index 25-29 - overweight 953725715 E66.3 Z68.28 Contact [facility] [id number] better on pred taper from [facility] as dir Health Concerns Section Related Observation LastModified by Organization Detai ls LastModified Time None Recorded Concern Status LastModified by Organization Details LastModified Time None Recorded Advance Directives Directive None Recorded Payers Encounter Date Sequence Insurance Name Policy Number Policy Brown Covered Member ID Brown Member ID Guarantor Name 06/10/2024 1 [facility] ([id number]) [id number] Lan Medrano antialine [id number] Erik Lopez Notes Date Note Type Note Provider Name and Address Organization Details Recorded Time 06/10/2024 text/html 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 Alessandro Mcdonnell PA-C [address] [facility] [address], [place], [address], [facility] 06/10/2024 17:29:25
== END 2024-11-22 08:39 | disposition home or self-care (01) ==
LOC: HO.HOSX 08:38
PROVIDERS: Visit Provider Physician Assistant
DX: M25.562 Pain in left knee (principal)
CPT/HCPCS: 73562